=== PATIENT | female | born 1945 | race Caucasian/White ===

== ENCOUNTER 2017-05-11 06:47 | Emergency (ER) | payer OTHER ==
[~2017-05-11] VITALS: Ht 167.6 cm; Wt 88.5 kg
--- NOTE | ~2017-05-11 | EKG ---
[place] [address] [facility] [place] [address] ELECTROCARDIOGRAM REPORT Name: GRAHAM BELTRAN Room #: [id number] Admission: 05/11/17 Attend Phys: Discharge: 05/11/17 Date of : 47 Report #: [id number] THIS REPORT FOR: //name// [facility] ED Test Date: 2017-05-11 Test Time: 07:37:41 Pat Name: GRAHAM BELTRAN Department: Room: Gender: F Insulation Nozzleman: vincenzo : 1945 Requested By: Jean Claude Dupree Order Number: [id number] MD: Brandon Fontana Measurements Intervals [place] Rate: 76 P: -14 ND: 123 QRS: 38 QRSD: 88 T: 54 QT: 413 QTc: 465 Interpretive Statements Sinus rhythm Atrial premature complex Compared to ECG 03/08/2015 09:33:49 No significant changes Electronically Signed On 05-11-2017 16:03:01 CDT by Brandon Fontana [email or web address] <ELECTRONICALLY SIGNED> By: rBandon Fontana MD, [facility] 05/11/17 1603 [id number] 6 Brandon Fontana MD, FACC /EPI
[~2017-05-11 06:47] MED LIST: ADVAIR HFA115 MCG/21 INH; ALBUTEROL INHALER INH; ASPIRIN EC81 M1 PO; AUGMENTIN 875875 MG PO; BACTRIM DS TAB1 EACH PO; CALCIUM CITRAT100 GM; CELEXA 20 MG TA20 M1 PO; CELEXA 20 MG TA20 MG PO; DOXYCYCLINE 10100 M1 PO; DUONEB 2.5-0.5 M3 ML INH; EVISTA; FISH OIL 1,001000 M2 PO; FLAGYL500 MG PO; LEVAQUIN 500 M500 M4 PO; LEVOTHYROXINE0.05 MG PO; LEVOXYL100 MCG PO; LOVASTATIN 20 M20 MG PO; OMEGA-31000 M1; PREDNISONE 10 M10 M1 PO; PREDNISONE 20 M20 MG PO; SIMVASTATIN40 MG PO; SPIRIVA INH; TYLENOL325 MG PO; VASOTEC10 MG PO; VITAMIN B-12500 MCG PO; VITAMIN D32000 UNIT PO; VITAMIN D3400 UNIT
[2017-05-11 08:09] LABS: ABG SAMPLE TYPE ARTERIAL; LACTATE 1.22 mmol/L (0.5-2.0); O2(CT) 18.6 mL/dL (15.0-23.0); O2Hb 93.1 % (92.0-98.0); PCO2 43.3 mmHg (35.0-45.0); PO2 70.4 mmHg (80.0-100.0); pH 7.412 (7.360-7.450); sO2 94.3 % (92.0-98.0); tCO2 28.3 mmol/L (24.0-30.0)
[2017-05-11 08:10] LABS: STICK SITE L.BRACHIAL
[2017-05-11 08:42] LABS: BASOPHILS 0.6 % (0.0-2.0); EOSINOPHILS 2.3 % (0.0-3.0); HEMATOCRIT 41.2 % (37.0-47.0); HEMOGLOBIN 13.7 gm/dL (12.0-15.0); LYMPHOCYTES 21.6 % (24.0-44.0); MCH 26.8 pg (26.0-34.0); MCHC 33.3 g/dL (28.0-37.0); MCV 80.5 fL (80.0-100.0); MONOCYTES 8.7 % (1.0-8.0); PLATELET COUNT 359 thou/uL (150-400); POLYS 66.8 % (36.0-66.0); RBC 5.12 mil/uL (4.20-5.00); RDW 14.5 % (10.5-14.5)
[2017-05-11 08:45] LABS: MANUAL DIFF NO
[2017-05-11 08:49] LABS: URINE BILIRUBIN NEGATIVE (Negative); URINE BLOOD NEGATIVE (Negative); URINE COLOR YELLOW; URINE GLUCOSE-RANDOM* NEGATIVE (Negative); URINE KETONES NEGATIVE (Negative); URINE LEUKOCYTES-REFLEX 3+ (Negative); URINE PROTEIN (DIPSTICK) NEGATIVE (Negative); URINE SPECIFIC GRAVITY <= 1.005 (1.003-1.035); URINE UROBILINOGEN 0.2 E.U./dl (0.2-1.0)
[2017-05-11 08:50] LABS: ANION GAP 10 mmol/L (7-16); BUN 10 mg/dL (7-18); CALCIUM 9.1 mg/dL (8.5-10.1); CHLORIDE 105 mmol/L (98-107); CO2 26 mmol/L (21-32); CREATININE 0.8 mg/dL (0.6-1.0); GLUCOSE 124 mg/dL (74-106); POTASSIUM 4.1 mmol/L (3.5-5.1); SODIUM 141 mmol/L (136-145)
[2017-05-11 09:00] LABS: CASTS None Seen /LPF (None Seen); CRYSTALS None Seen /LPF (None Seen); SQUAMOUS 4-10 Moderate /LPF (0-3); TRANSITIONAL EPITHEL CELL 0-3 Few /LPF (None Seen); URINE RBC None Seen /HPF (0-2)
[2017-05-11 09:00] LABS: ALBUMIN 3.4 g/dL (3.4-5.0); ALKALINE PHOSPHATASE 119 U/L (46-116); NT-PRO BRAIN NAT PEPTIDE 372 pg/mL (<300); SGOT 21 U/L (15-37); SGPT 22 U/L (30-65); TOTAL BILIRUBIN 0.5 mg/dL (<0.1-1.0); TOTAL PROTEIN 7.4 g/dL (6.4-8.2); TROPONIN-I < 0.04 ng/mL (<0.04-0.07)
[2017-05-11] MEDS ORDERED: PREDNISONE 20 M20 MG PO (09:13)
[2017-05-11] MEDS ORDERED: KEFLEX500 MG PO (09:13)
== END 2017-05-11 09:45 | disposition home or self-care (01) ==
LOC: ER 06:47
PROVIDERS: Emergency Medicine
DX: J44.1 Chronic obstructive pulmonary disease with (acute) exacerbation (principal); R09.02 Hypoxemia; N39.0 Urinary tract infection, site not specified; F32.9 Major depressive disorder, single episode, unspecified; E03.9 Hypothyroidism, unspecified; E78.5 Hyperlipidemia, unspecified; Z85.118 Personal history of other malignant neoplasm of bronchus and lung; Z90.710 Acquired absence of both cervix and uterus; Z90.49 Acquired absence of other specified parts of digestive tract; Z88.5 Allergy status to narcotic agent

== ENCOUNTER 2018-12-30 14:24 | Emergency (ER) | payer OTHER ==
[~2018-12-30] VITALS: Ht 167.6 cm; Wt 86.2 kg
[~2018-12-30 14:24] MED LIST changes: +KEFLEX500 MG PO
[2018-12-30 16:38] VITALS: BP 151/82
== END 2018-12-30 15:30 | disposition home or self-care (01) ==
LOC: ER 14:24
DX: S52.592A Other fractures of lower end of left radius, initial encounter for closed fracture (principal); F32.9 Major depressive disorder, single episode, unspecified; E03.9 Hypothyroidism, unspecified; E78.5 Hyperlipidemia, unspecified; J44.9 Chronic obstructive pulmonary disease, unspecified; Z85.118 Personal history of other malignant neoplasm of bronchus and lung; Z90.710 Acquired absence of both cervix and uterus; Z88.5 Allergy status to narcotic agent; Z87.891 Personal history of nicotine dependence; W00.0XXA Fall on same level due to ice and snow, initial encounter; Y93.89 Activity, other specified; Y92.89 Other specified places as the place of occurrence of the external cause; Y99.8 Other external cause status